=== PATIENT | female | born 1990 | race Caucasian/White ===

== ENCOUNTER 2022-05-31 17:10 | Inpatient (IN) | payer SELFPAY ==
[2022-05-31] VITALS (32 sets, daily range): BP systolic 112–144; BP diastolic 62–94; PULSE 81–111; TEMP 36.7–37.4; O2SAT 97–100
[2022-05-31] MEDS: LACTATED RINGERS 500 ML 999 ML IV ×2 (17:40→20:41)
[2022-05-31 17:53] LABS: Absolute Lymphocyte Count 1.73 X10^3/uL (0.83-4.51); Absolute Neutrophil Count 9.1 X10^3/uL (2.0-7.7); Basophil# 0.02 X10^3/uL; Basophil% 0.2 % (0-1); Eosinophil# 0.01 X10^3/uL; Eosinophils% 0.1 % (0-5); Hematocrit 36.1 % (37-47); Hemoglobin 12.6 g/dL (12.0-15.0); Lymphocyte # 1.73 X10^3/ul (0.83-4.51); Lymphocyte % 14.8 % (19-41); Mean Corp Hgb Conc 34.9 g/dL (32-36); Mean Corpuscular Hgb 32.1 pg (27.0-32.0); Mean Corpuscular Volume 91.9 fL (81-99); Mean Platelet Vol. 10.1 fl (6.2-12.0); Monocyte# 0.72 X10^3/uL; Monocyte% 6.2 % (0-10); NRBC Flagged by Analyzer 0 % (0-5); Neutrophil # 9.11 X10^3/uL (2.7-7.7); Platelet Count 257 K/mm3 (150-450); RBC Distribution Width CV 14.3 % (11.6-14.6); RBC Distribution Width SD 47.7 fl (35.1-43.9); Red Blood Count 3.93 M/mm3 (4.2-5.4); White Blood Count 11.7 K/mm3 (4.4-11.0)
[2022-05-31] MEDS: Lactated Ringers 1,000 ML 50 ML IV (18:11)
[2022-05-31 18:12] LABS: Bacteria 0 SEEN /hpf (None Seen); Mucous, Urine 0 SEEN /hpf (<or=2+); Red Blood Cells-Urine 0 SEEN /hpf (0-5); White Blood Cells 0 SEEN /hpf (0-5)
[2022-05-31 18:26] LABS: Amphetamine Urine VISTA NEGATIVE (<1000 ng/mL); Barbiturate Urine VISTA NEGATIVE (< 200 ng/mL); Benzodiazepine Urine VISTA NEGATIVE (< 200 ng/mL); Cocaine Urine VISTA NEGATIVE (< 300 ng/mL); Ecstacy Urine VISTA NEGATIVE (< 500 ng/mL); Methadone Urine VISTA NEGATIVE (< 300 ng/mL); PCP Urine VISTA NEGATIVE (< 25 ng/mL); THC Urine VISTA NEGATIVE (< 50 ng/mL); Vista UDS pH Range 7
[2022-05-31 18:27] LABS: Rubella IgG Reactive (Nonreactive); Syphilis Antibodies Non-reactive
[2022-05-31 18:51] LABS: HIV - WCH Non-Reactive (Nonreactive); Hepatitis B Surface Antigen Non-Reactive (Nonreactive); Hepatitis C Antibody Non-Reactive (Nonreactive)
[2022-05-31 18:54] LABS: Color, Urine Yellow (Yellow); Glucose, Dipstick Normal (Normal); Ketone-Dipstick Negative (Negative); Leukocyte Esterase-Dipstick 25 /ul (Negative); Nitrite-Dipstick Negative (Negative); Occult Blood-Urine 50 /ul (Negative); Protein-Dipstick 15 mg/dl (Negative); Urine Bilirubin Dipstick Negative (Negative); Urine Clarity Clear (Clear); Urine Urobilinogen Normal (Normal)
[2022-05-31 19:01] LABS: Squamous Epithelial Cells - UA 0-5 SEEN /hpf (5-10)
--- NOTE | 2022-05-31 19:39 | PCM.HP.OB ---
HPI - General General Date of Admission: 05/31/22 Date of Service: 05/31/22 HPI Narrative ADELINA WONG, is a 32 F @ 41.2 who in labor- pt was receiving care from quality assurance supervisor final only and has not established with our practice. I received a call today from Director Telemetry stating patient was geetha since yesterday - today around 2:30pm quality assurance supervisor final tried to examine cervix but had a difficult time due to prominent pubic bone but thought she was 6cm. pt wanted to come to hospital for epidural and pitocin. Upon my arrival patient with irregular contractions and found to be 6cm/80/0. Gender ultrasound done at 20 weeks only [facility] Medical History (Updated 05/31/22 @ 19:[address] Yokasta Puri MD) Headache Allergy/AdvReac Type Severity Reaction Status Date / Time No Known Allergies Allergy Verified 05/31/22 17:40 Social History Smoking Status: Never smoker History Elective abortions Hx Para 0 Spontaneous abortions Hx # Term Pregnancies Ectopic pregnancies Hx # Pregnancies Multiple births # of living children NST FHR Rate Baby A Baseline: 140 Variability:: Moderate Accelerations:: 15 x 15 Decelerations:: None NST Reactive:: Yes FHR Category:: Category I Uterine Activity:: irregular Vital Signs Vital Signs Vital Signs: 05/31/22 17:28 05/31/22 17:28 05/31/22 18:03 Temperature Temperature Source Temporal Pulse Rate 96 Blood Pressure 127/77 H BP Systolic 127 BP Diastolic 77 Pulse Ox 05/31/22 18:03 05/31/22 18:35 05/31/22 18:35 Temperature 98.1 F Temperature Source Pulse Rate 105 H Blood Pressure 124/81 H BP Systolic 124 BP Diastolic 81 Pulse Ox 05/31/22 18:35 05/31/22 18:35 05/31/22 18:40 Temperature Temperature Source Pulse Rate 100 100 Blood Pressure BP Systolic BP Diastolic Pulse Ox 100 05/31/22 18:40 05/31/22 18:44 05/31/22 18:44 Temperature Temperature Source Pulse Rate 102 H Blood Pressure 117/86 H BP Systolic 117 BP Diastolic 86 Pulse Ox 99 05/31/22 18:43 05/31/22 18:43 05/31/22 18:45 Temperature 98.4 F Temperature Source Temporal Pulse Rate 105 H Blood Pressure BP Systolic BP Diastolic Pulse Ox 05/31/22 18:45 05/31/22 18:50 05/31/22 18:50 Temperature Temperature Source Pulse Rate 100 Blood Pressure 124/87 H BP Systolic 124 BP Diastolic 87 Pulse Ox 99 05/31/22 18:50 05/31/22 18:50 05/31/22 18:55 Temperature Temperature Source Pulse Rate 102 H Blood Pressure 144/93 H BP Systolic 144 BP Diastolic 93 Pulse Ox 100 05/31/22 18:55 05/31/22 18:55 05/31/22 18:55 Temperature Temperature Source Pulse Rate 94 104 H Blood Pressure BP Systolic BP Diastolic Pulse Ox 100 05/31/22 19:00 05/31/22 19:00 05/31/22 19:00 Temperature Temperature Source Pulse Rate 89 Blood Pressure 135/83 H BP Systolic 135 BP Diastolic 83 Pulse Ox 100 05/31/22 19:03 05/31/22 19:03 05/31/22 19:06 Temperature Temperature Source Pulse Rate 96 99 Blood Pressure 116/79 BP Systolic 116 BP Diastolic 79 Pulse Ox 05/31/22 19:06 05/31/22 19:08 05/31/22 19:08 Temperature Temperature Source Pulse Rate 100 Blood Pressure 118/70 BP Systolic 118 BP Diastolic 70 Pulse Ox 98 05/31/22 19:11 05/31/22 19:11 05/31/22 19:13 Temperature Temperature Source Pulse Rate 97 Blood Pressure 114/71 BP Systolic 114 BP Diastolic 71 Pulse Ox 98 05/31/22 19:13 05/31/22 19:16 05/31/22 19:16 Temperature Temperature Source Pulse Rate 96 97 Blood Pressure BP Systolic BP Diastolic Pulse Ox 98 05/31/22 19:18 05/31/22 19:18 05/31/22 19:21 Temperature Temperature Source Pulse Rate 94 100 Blood Pressure 112/72 BP Systolic 112 BP Diastolic 72 Pulse Ox 05/31/22 19:21 05/31/22 19:23 05/31/22 19:23 Temperature Temperature Source Pulse Rate 94 Blood Pressure 123/81 H BP Systolic 123 BP Diastolic 81 Pulse Ox 98 05/31/22 19:25 05/31/22 19:25 05/31/22 19:26 Temperature Temperature Source Pulse Rate 86 90 Blood Pressure 144/84 H BP Systolic 144 BP Diastolic 84 Pulse Ox 05/31/22 19:26 05/31/22 19:29 05/31/22 19:29 Temperature Temperature Source Pulse Rate 81 Blood Pressure 137/81 H BP Systolic 137 BP Diastolic 81 Pulse Ox 100 05/31/22 19:31 05/31/22 19:31 Temperature Temperature Source Pulse Rate 89 Blood Pressure 140/86 H BP Systolic 140 BP Diastolic 86 Pulse Ox Weight Weight: 87.09 kg Body Mass Index (BMI) 30.0 Physical Exam Narrative VE: 80/0 AROM clear- pelvis feels adequate Limited Bedside Ultrasound: Vertex, AC measuring 41.6weeks EFW: 8.5lbs Const alert, oriented x3 and healthy appearing General Appearance: cooperative HEENT normocephalic GI GI Narrative: Gravid, non tender to palpation. OB / External & Speculum: external exam normal Extremity normal to inspection Skin no rashes or lesions noted Neuro oriented x3 and CN's II-XII intact bilaterally Psych Appearance: grossly normal Labs Labs Labs: Blood Type Pending Antibody Screen Pending Hct 36.1 % (37-47) L Hgb 12.6 g/dL (12.0-15.0) Syphilis Total Ab Non-reactive Rubella IgG Antibody Reactive (Nonreactive) Hep Bs Antigen Non-Reactive (Nonreactive) HIV 1&2 Antibody Non-Reactive (Nonreactive) Assessment & Plan (1) Limited care in third trimester: (2) 41 weeks gestation of : (3) Labor abnormality, antepartum: PLAN: Plan Admit to L&D Mont[facility] FHR/TOCO- FHR cat 1 reactive at this time Epidural for pain Monitor VS bulging membranes on exam-AROM was performed arrest dilation 6cm ?-per quality assurance supervisor final will start pitocin and place IUPC- pt would like to try for vaginal delivery at this time Will recheck cervix in 3hrs
[2022-05-31] MEDS: fentaNYL-bupivacaine (epidural) 100 ML BAG EPIDURAL ×2 (19:48→23:39)
[2022-05-31] MEDS: 0.9% Saline Lock 10 ML Syringe IV (20:15)
[2022-05-31 20:21] LABS: Bedside Glucose 92 mg/dL (74-106)
[2022-06-01] VITALS (197 sets, daily range): BP systolic 103–146; BP diastolic 58–93; PULSE 78–127; RESP 12–21; TEMP 36.3–37.7; O2SAT 97–100
[2022-06-01] MEDS: LACTATED RINGERS 500 ML 999 ML IV ×2 (00:10→04:06)
[2022-06-01] MEDS: 0.9% Saline Lock 10 ML Syringe IV (00:45)
[2022-06-01] MEDS: Lactated Ringers 1,000 ML 200 ML IV (01:37)
[2022-06-01 02:17] LABS: Chlamydia Trachomatis by PCR Negative (Negative); Neisserai gonorrhoeae by PCR Negative (Negative); Probe Check PASS; Sample Adequacy Control PASS; Specimen Processing Control PASS
--- NOTE | 2022-06-01 05:15 | PCM.PN.BLA ---
Progress Note Patient was an attempted home delivery patient with a lead relay tester- no formal ultrasound and no prior labs performed. pt was brought into the hospital in the early evening of 05/31/2022 for evaluation due to pain and with what the bookkeeper described as a pubic bone that was prominent. Upon my arrival the bookkeeper described that she was possibly 6 cm since around 2:30 PM but that was the first time she ever examined her . Presentation at the hospital patient was 6 cm bulging bag with irregular contractions. AROM was performed and the patient progressed to fully dilated without augmentation with Pitocin. Patient has been complete and pushing since approximately 2:30 AM. caput appreciated. I came in to evaluate the patient caput and +1 station. I was able to disengage the head there is minimal descent with maternal pushing. vulvar swelling. At this time my recommendation is to proceed with a primary section. The patient was counseled on the risks of proceeding with section including but not limited to infection, bleeding, injury to pelvic structures including but not limited to bladder, bowel, vessels. We discussed the possible need for transfusion. We discussed possible need for pillow versus push up from below to help deliver head. Discussed preoperative antibiotics with the patient. Discussed epidural and if that is not adequate possible spinal versus general anesthesia. She is not getting much relief at this point. pt agrees to proceed.
[2022-06-01] MEDS: Sodium Citrate/Citric Acid 30 ML UDC PO (05:19)
[2022-06-01] MEDS: Acetaminophen 500 MG Tablet PO (05:19)
[2022-06-01] MEDS: Cefazolin 2 GM in 0.9% Normal Saline 100 ML IV (05:22)
--- NOTE | 2022-06-01 06:22 | EX.PCM.OBRPT ---
Maternal Data Information Final BALDEMAR Source: LMP Gestational age: 41.2 Details Operative Information Date of Procedure: 06/01/22 Pre-Operative Diagnosis: 41.2 weeks gestation, thick meconium, arrest of descent, Post-Operative Diagnosis: same, live female infant Indications for : Arrrest of Descent Indications Narrative: Patient was complete and pushing for approximately 2-1/2 hours with minimal head descent and caput appreciated. Thick meconium. Patient had heart rate tracing that was category 2. Classification: ROE Procedure Type: low transverse well drill operator cable tool #1: Ashlyn Fry Type of Anesthesia: Epidural Antibiotic Given: Ancef 2 grams IV x1 and Zithromax 500 mg/5 mL X1 Drain: Jett to straight drain Estimated Blood Loss: 600 Fluids Replaced: 1000 Procedure Start Time: 05:50 Procedure Stop Time: 06:26 Time of Delivery: 05:53 Findings Description of Procedure: After informed consent was obtained the patient was taken the operating room. She was then placed in the supine position. Warm. The pillow was placed with 180 cc of saline. She was prepped and draped in the normal sterile fashion. Epidural anesthesia was found to be adequate. At this time a Pfannenstiel skin incision was made with a knife was carried down to the underlying layer of the fascia. The fascial incision was then extended laterally using curved Scott scissor. Attention was then turned to the superior aspect of the fascial edge was grasped with 2 straight Wheelwright clamps tented up and the rectus muscle dissected off blunty. Rectus muscles were then in the midline bluntly and peritoneum was entered bluntly. Gentle opposing traction was placed. At this time the vesicouterine peritoneum was identified. Scalpel was used to make a uterine incision in a low transverse fashion. The uterus was then entered bluntly gentle opposing traction was placed to extend this incision. thick meconium note. At this time the infant's head was disengaged and infant's head was brought to the uterine incision was delivered atraumatically. Mouth and nose were suctioned Cord was clamped and cut infant was handed to the waiting nursery team. The Placenta was removed from the uterus. The uterus was then removed from the abdominal cavity. The uterus was cleared of all clots and debris using a lap. At this time the uterine incision was reapproximated using #1 Vicryl in a running locked fashion. Followed by a few #1 Vicryl [id number] sutures for hemostasis. Hemostasis was appreciated. Posterior cul-de-sac was then cleared of all clots and debris. Uterus was placed back in the abdominal cavity. Gutters were cleared of all clots and debris. Uterine incision was reevaluated and noted to be of excellent hemostasis. Elaine was placed. At this time the peritoneum was grasped with Kellys reapproximated using #2 Vicryl suture in a running fashion. Fascia was then reapproximated using #1 Vicryl in a running fashion. Subcu layer was reapproximated with #2 0 plain gut suture in an interrupted fashion. Subcu layer was closed using 4-0 Monocryl in a subcu fashion. Dry sterile dressing was applied. Instrument lap needle count correct ?2. Anticipated normal postoperative course. pillow removed at endo of case by nursing staff Leilani Sun. Presentation: Positive for Vertex Amniotic Membrane Rupture Type: Artificial Amniotic Fluid Description: Thick meconium (clear at initial arom- thick meconium at delivery) Placental Delivery Description: Expressed Placenta Disposition: [facility] Cord Vessel Description: 3 Vessels Cord Entanglement: None Cord Gases: ABG and VBG Infant A Gender: Female (1 minute): 8 (5 minute): 9 Delayed Cord Clamping: No Complications Risks of Surgery Discussed w/Patient: Bleeding, Anesthesia Risks, Infection and Injury to surrounding structure(s) including bowel and bladder Complications: none
--- NOTE | 2022-06-01 07:35 | NURSING ---
bedside report given to Flower Zhao RN who is assuming care of pt at this time
[2022-06-01] MEDS: Ketorolac 30 MG/ML Syringe IV ×3 (07:42→18:00)
[2022-06-01] MEDS: Lactated Ringers 1,000 ML 100 ML IV (09:56)
[2022-06-01] MEDS: Senna/Docusate Sodium 1 Tablet PO (10:52)
[2022-06-01] MEDS: Acetaminophen 500 MG Tablet 1000 MG PO ×3 (11:45→23:41)
[2022-06-02] VITALS (9 sets, daily range): BP systolic 101–119; BP diastolic 57–70; PULSE 77–94; RESP 16–17; TEMP 36.3–36.4; O2SAT 81–98
[2022-06-02] MEDS: Ketorolac 30 MG/ML Syringe IV (00:29)
[2022-06-02] MEDS: 0.9% Saline Lock 10 ML Syringe IV (00:29)
[2022-06-02 05:33] LABS: Hematocrit 27.4 % (37-47); Mean Corp Hgb Conc 32.8 g/dL (32-36); Mean Corpuscular Hgb 31.9 pg (27.0-32.0); Mean Corpuscular Volume 97.2 fL (81-99); Mean Platelet Vol. 9.8 fl (6.2-12.0); Platelet Count 179 K/mm3 (150-450); RBC Distribution Width CV 14.6 % (11.6-14.6); RBC Distribution Width SD 51.5 fl (35.1-43.9); Red Blood Count 2.82 M/mm3 (4.2-5.4)
[2022-06-02] MEDS: Acetaminophen 500 MG Tablet 1000 MG PO ×3 (05:49→18:31)
[2022-06-02] MEDS: Ibuprofen 600 MG Tablet PO ×3 (06:42→18:31)
--- NOTE | 2022-06-02 08:33 | PN.OBGYN_ITS ---
Subjective Subjective Patient is doing well. Having some abdominal discomfort that she feels is controlled with pain medication at this time. She is ambulating and voiding without difficulty. She had an episode of lightheadedness and dizziness but nothing since. She denies chest pain, shortness of breath, leg pain. Lochia is normal. She is breast-feeding. She is tolerating regular diet without nausea or vomiting. Objective Data Objective Data Vital Signs: Vital Signs Temp Pulse Resp BP Pulse Ox O2 Del Method 97.6 F L 82 17 107/64 97 Room Air 06/01/22 20:00 06/02/22 08:28 06/02/22 06:29 06/02/22 08:28 06/02/22 08:28 06/02/22 06:29 Oxygen Delivery Method Room Air Weight: 192 lb Body Mass Index (BMI) 30.0 Intake & Output: Intake and Output for Last 24 Hours 05/31/22 06/01/22 06/02/22 23:59 23:59 23:59 Intake Total 1352.50 / 1352.50 4094.17 / 4094.17 Output Total 900 / 900 4250 / 4250 700 / 700 Balance 452.50 / 452.50 -155.83 / -155.83 -700 / -700 Lab / Micro Data Result Diagrams: 06/02/22 05:26 Labs: Laboratory Results - last 24 hr 06/01/22 08:30: Screen NEGATIVE, Baby's Blood Type B POSITIVE, Baby's VAIBHAV POSITIVE 06/02/22 05:26: WBC 15.0 H, RBC 2.82 L, Hgb 9.0 L, Hct 27.4 L, MCV 97.2 D, MCH 31.9, MCHC 32.8 D, RDW Std Deviation 51.5 H, RDW Coeff of Beryl 14.6, Plt Count 179, MPV 9.8 Physical Exam Const alert and no apparent distress General Appearance: comfortable HEENT normocephalic GI soft to palpation GI Narrative: ATTP, no rebounding, no guarding, no rigidity, dressing c/d/i Assessment & Plan (1) Delivery by section: PLAN: Pt is post op day 1 from a section. Routine postop care. We w ill check CBC in the morning.
[2022-06-02] MEDS: oxyCODONE 5 MG Tablet PO ×2 (10:11→15:08)
[2022-06-02] MEDS: Senna/Docusate Sodium 1 Tablet PO (13:09)
[2022-06-03 00:39] VITALS: BP 110/65; PULSE 77
[2022-06-03] MEDS: Ibuprofen 600 MG Tablet PO ×3 (00:43→12:48)
[2022-06-03] MEDS: Acetaminophen 500 MG Tablet 1000 MG PO ×3 (00:44→12:51)
[2022-06-03 05:19] VITALS: BP 111/74; PULSE 92; RESP 16; TEMP 36.6
[2022-06-03] MEDS: oxyCODONE 5 MG Tablet PO (05:37)
[2022-06-03 06:08] LABS: Hemoglobin 8.8 g/dL (12.0-15.0); Mean Corp Hgb Conc 32.6 g/dL (32-36); Mean Corpuscular Hgb 31.5 pg (27.0-32.0); Mean Corpuscular Volume 96.8 fL (81-99); Mean Platelet Vol. 9.9 fl (6.2-12.0); Platelet Count 188 K/mm3 (150-450); RBC Distribution Width CV 14.6 % (11.6-14.6); RBC Distribution Width SD 51.3 fl (35.1-43.9); Red Blood Count 2.79 M/mm3 (4.2-5.4); White Blood Count 9.4 K/mm3 (4.4-11.0)
[2022-06-03 08:40] VITALS: BP 107/73; PULSE 73
[2022-06-03 08:45] VITALS: BP 107/73; PULSE 73; RESP 16; TEMP 36.7
--- NOTE | 2022-06-03 11:27 | PCM.PN.OB ---
Subjective Subjective Patient is doing well. Pain is improved today and controlled with pain medication. She is ambulating and voiding without difficulty. Lochia is normal. She is breast-feeding. She is tolerating regular diet without nausea or vomiting. She desires to go home today. Objective Data Objective Data Vital Signs: Vital Signs Temp Pulse Resp BP Pulse Ox O2 Del Method 98.1 F 73 16 107/73 97 Room Air 06/03/22 08:45 06/03/22 08:45 06/03/22 08:45 06/03/22 08:45 06/02/22 08:28 06/02/22 06:29 Oxygen Delivery Method Room Air Weight: 192 lb Body Mass Index (BMI) 30.0 Intake & Output: Intake and Output for Last 24 Hours 06/01/22 06/02/22 06/03/22 23:59 23:59 23:59 Intake Total 4094.17 / 4094.17 Output Total 4250 / 4250 700 / 700 Balance -155.83 / -155.83 -700 / -700 Lab / Micro Data Result Diagrams: 06/03/22 06:00 Labs: Laboratory Results - last 24 hr 06/03/22 06:00: WBC 9.4, RBC 2.79 L, Hgb 8.8 L, Hct 27.0 L, MCV 96.8, MCH 31.5, MCHC 32.6, RDW Std Deviation 51.3 H, RDW Coeff of Beryl 14.6, Plt Count 188, MPV 9.9 Physical Exam Const alert and no apparent distress General Appearance: comfortable HEENT normocephalic Resp normal respiratory effort GI soft to palpation GI Narrative: ATTP, non acute, dresing c/d/i Extremity normal to inspection and no calf tenderness Assessment & Plan (1) Delivery by section: PLAN: The patient is postoperative day 2 from a section. She desires discharge today. Discharge instructions reviewed. To follow-up in the office this week for incision check.
--- NOTE | 2022-06-03 11:33 | DCINST_ITS ---
Discharge Instructions Diet Discharge Diet: No restrictions Activity Discharge Activity: May Not Drive and May Shower May resume sexual activity in: 6 weeks (No soaking in water, tampons, or intercourse) Ice area for (Minutes): 15 Weight Bearing Status: Weight bearing as tolerated Lifting Restrictions: Nothing heavier than the baby Dressing / Incision Call your doctor if your incision/area has: Continuous Slow Oozing, Sudden Increased Bleeding, Increased Pain/ Swelling, Increased Redness, Foul Smelling Discharge and Swelling at the incision site Call your doctor if you observe: Fever of 101 or Higher, Coldness, Increased Pain, Numbness or Tingling, Change in Color, Inability to urinate, Inability to have a bowel movement, Using more than 1 pad per hour, Shortness of breath, Dizziness, Fainting spells, Swelling in the ankles, Chest pain, Increased palpitations (irregular heartbeat), Calf discomfort and Uncontrolled pain Suture Line Care: Avoid Pulling/Pushing and Avoid Pinching/Bending Remove Dressing in: 5 days Cleanse incision/area with: Soap & Water Follow Up Care Please Follow Up With: Yokasta Puri MD When: 1 week for incision check 6 weeks for visit Test Results: Test results from this visit will be discussed in further detail at your follow- up appointment, if applicable. Discharge Plan Admission Admit Date/Time: 05/31/22 17:10 Primary Reason for Your Visit: Delivery Attending Provider: Yokasta Puri Discharge Orders/Prescriptions Prescriptions: New ibuprofen 600 mg tablet 600 mg PO Q6H PRN (Reason: pain) Qty: 30 0RF oxycodone-acetaminophen [Percocet] 5-325 mg tablet 1 tab PO Q6H PRN (Reason: pain) 7 Days Qty: 20 0RF ferrous sulfate 325 mg (65 mg iron) tablet 325 mg PO QODAY Qty: 30 0RF docusate sodium [Colace] 100 mg capsule 100 mg PO BID Qty: 30 0RF Disposition Disposition (needs filled in before D/C Order can be placed): Home, Self Care
[2022-06-03] MEDS: Senna/Docusate Sodium 1 Tablet PO (12:48)
== END 2022-06-03 14:30 | disposition home or self-care (01) | DRG 788 ==
PROVIDERS: Obstetrics & Gynecology; Admitting Provider Obstetrics & Gynecology; Visit Provider Obstetrics & Gynecology
DX: O32.4XX0 Maternal care for high head at term, not applicable or unspecified (principal); O48.0 Post-term pregnancy; O77.0 Labor and delivery complicated by meconium in amniotic fluid; Z37.0 Single live birth; Z3A.41 41 weeks gestation of pregnancy
CPT/HCPCS: 59025; 59050; 76815; 80307; 81001; 82962; 85025; 85027; 85461; 86703; 86762; 86780; 86803; 86850; 86900; 86901; 87340; 87491; 87591; 99221; J7120; A4216; G0378; J2405; J2790